=== PATIENT | female | born 1985 | race Caucasian/White ===

== ENCOUNTER 2019-04-14 15:44 | Emergency (ER) | payer OTHER, SELFPAY ==
[2019-04-14 15:45] VITALS: BP 143/86; PULSE 67; RESP 15; TEMP 36.3; O2SAT 97; BMI 25.8
--- NOTE | 2019-04-14 16:02 | DI.US.S_ITS ---
PROCEDURE: US ABDOMEN LIMITED INDICATIONS: RIGHT UPPER QUANDRANT PAIN TECHNIQUE: Real-time focused scanning was performed of the abdomen, with image documentation. COMPARISON: None. FINDINGS: No gallstones. No gallbladder wall thickening, pericholecystic fluid or sonographic Kearney's sign. The liver is normal in size and echotexture. Common bile duct is normal in caliber measuring 3.8 mm. Visualized pancreas is normal. IMPRESSION: Normal limited abdominal ultrasound exam. A cause for right upper quadrant pain is not identified. Dictated by: Juan Haile M.D. on 04/14/2019 at 16:00 Approved by: Juan Haile M.D. on 04/14/2019 at 16:01
--- NOTE | 2019-04-14 16:07 | ED_ITS ---
HPI - Abdominal Pain <KATERIN Orosco - Last Filed: 04/14/19 20:23> General Chief Complaint: Abdominal Pain Stated Complaint: states galbladder attack Time Seen by Provider: 04/14/19 15:53 Source: patient Mode of arrival: ambulatory Limitations: no limitations History of Present Illness HPI narrative: Healthy 33-year-old female with a history of asthma, presents emergency department today complaining of a right upper quadrant pain. She states the pain came on suddenly and awoke her up from the the middle the night. She described as a severe 8/10 colicky pain that has slightly decreased in severity over the past few hours occasionally radiates to her right shoulder and epigastric area. She reports associated nausea, decreased appetite, and occasional chills and sweats. Patient denies any vomiting or diarrhea, she states she has had a only a small amount of food to eat today and that has not aggravated her pain. Patient also reports she has just finished azithromycin f or an ear infection this past week and has some residual chest tightness due to asthma which she takes her albuterol for. She denies any vision changes, headaches, chest pain, shortness of breath, diarrhea, fevers, leg swelling, dizziness, or syncope. Related Data Previous Rx's Medication Instructions Recorded ketorolac 10 mg PO QID PRN #20 tab 04/14/19 ondansetron 8 mg PO Q8H PRN #20 tab 04/14/19 Allergies Allergy/AdvReac Type Severity Reaction Status Date / Time No Known Drug Allergies Allergy Verified 04/14/19 15:49 Review of Systems <KATERIN Orosco - Last Filed: 04/14/19 20:23> Review of Systems Narrative: REVIEW OF SYSTEMS: GENERAL: Denies fever, chills, malaise, or wt. loss. HENT: No head trauma, sore throat, or dysphagia. EYES: No loss of vision, double vision, eye pain, or irritation. CARDIOVASCULAR: No chest pain, palpitations, or orthopnea. RESPIRATORY: Patient reports just getting over a cold, see HPI. GASTROINTESTINAL: Complains of right upper quadrant abdominal pain, see HPI GENITOURINARY: No flank pain, urinary incontinence, hesitancy, frequency, or dysuria. No vaginal discharge or dyspareunia. MUSCULOSKELETAL: No pain, weakness, or trauma. INTEGUMENTARY: No rash, lesions, or pruritus. NEURO: No numbness, tingling, memory loss, confusion, or headaches. PSYCH: No behavior or mood changes. PFSH <KATERIN Orosco - Last Filed: 04/14/19 20:23> Medical History Asthma (Acute) Social History (Updated 04/14/19 @ 20:20 by KATERIN Orosco) Smoking Status: Unknown if ever smoked second hand exposure: No Social History Smoking Status: Unknown if ever smoked second hand exposure: No Exam <KATERIN Orosco - Last Filed: 04/14/19 20:23> Initial Vital Signs Initial Vital Signs: Vital Signs Temperature 97.4 F L 04/14/19 15:45 Pulse Rate 67 04/14/19 15:45 Respiratory Rate 15 04/14/19 15:45 Blood Pressure 143/86 H 04/14/19 15:45 Pulse Oximetry 97 04/14/19 15:45 PHYSICAL EXAMINATION: GENERAL: Well groomed, alert, and cooperative. Answers questions promptly and appropriately. Vital signs noted. HENT: Normocephalic, atraumatic. Hearing intact. Oral mucosa is pink and moist. EYES: Conjunctiva pink, sclera white, no periorbital swelling. CARDIOVASCULAR: S1 and S2 sounds normal. Regular rate and rhythm, no murmurs, clicks, or bruits. No pedal edema. RESPIRATORY: Normal respiratory rate, trachea midline, airway patent. No stridor, nasal flaring or accessory muscle use. Diffuse wheezes lung thorne this resolved after administration a duoneb. GASTROINTESTINAL: Bowel sounds normoactive. Abdomen is soft, right upper quadrant tenderness present. Positive Kearney sign. No organomegaly, no palpable masses. No rebound tenderness. GENITALURINARY: No flank tenderness. MUSCULOSKELETAL: Normal gait and coordination. Equal tone and mass bilaterally. EXTREMITIES: CMS intact, no pedal edema. SKIN: Warm, dry, soft, appropriate color for ethnicity. No lesions, rashes, or wounds. NEURO: Alert and Oriented X 3. Good coordination. No ataxia, or sensory deficits, or cognitive issues. PSYCH: Appropriate affect and mood. <Audrey Jerry MD - Last Filed: 04/15/19 07:12> Initial Vital Signs Initial Vital Signs: Vital Signs Temperature 97.4 F L 04/14/19 15:45 Pulse Rate 67 04/14/19 15:45 Respiratory Rate 15 04/14/19 15:45 Blood Pressure 143/86 H 04/14/19 15:45 Pulse Oximetry 97 04/14/19 15:45 Course <Ines KATERIN Ortiz - Last Filed: 04/14/19 20:23> Course Course Narrative: I had an extensive conversation with the patient and her mother about her test results. We discussed that further testing was needed to rule out other gallbladder etiologies (such as sphincter of Oddi dysfunction) and also discussed how these tests are not ordered through the emergency department. A CT scan was offered. We discussed how the patient does not meet admission criteria or criteria for surgical consult. I offered her pain and na usea medication and strongly encouraged her to follow up with her primary care provider. The patient was worried as she lives on [place], other options such as sitting in [place] were explored the conversation. Toradol was given before patient was discharged, she was given prescription for Toradol and ondansertron to take home with her. Orders Ordered: Discontinued Medications Albuterol/Ipratropium (Duoneb) 3 ml INH NOW ONE Stop: 04/14/19 16:08 Last Admin: 04/14/19 16:13 Dose: 3 ml Documented by: DANIELLE Ketorolac Tromethamine (Toradol) 30 mg IV NOW ONE Stop: 04/14/19 17:28 Last Admin: 04/14/19 17:33 Dose: 30 mg Documented by: DAYDAY Consultations Consultation #1: Patient staffed with Dr. Jerry. Vital Signs Vital signs: Vital Signs - 8 hr 04/14/19 15:45 04/14/19 16:13 04/14/19 17:58 Temperature 97.4 F L Pulse Rate 67 64 67 Respiratory Rate 15 14 19 Blood Pressure 143/86 H 118/77 Pulse Oximetry 97 100 100 <Audrey Jerry MD - Last Filed: 04/15/19 07:12> Orders Ordered: Discontinued Medications Albuterol/Ipratropium (Duoneb) 3 ml INH NOW ONE Stop: 04/14/19 16:08 Last Admin: 04/14/19 16:13 Dose: 3 ml Documented by: DANIELLE Ketorolac Tromethamine (Toradol) 30 mg IV NOW ONE Stop: 04/14/19 17:28 Last Admin: 04/14/19 17:33 Dose: 30 mg Documented by: DAYDAY Vital Signs Vital signs: Vital Signs - 8 hr 04/14/19 15:45 04/14/19 16:13 04/14/19 17:58 Temperature 97.4 F L Pulse Rate 67 64 67 Respiratory Rate 15 14 19 Blood Pressure 143/86 H 118/77 Pulse Oximetry 97 100 100 MDM - Abdominal Pain <KATERIN Orosco - Last Filed: 04/14/19 20:23> Medical Records Attestation: I reviewed the patient's medical records. Lab Data Attestation: I reviewed the patient's lab results. Result diagrams: 04/14/19 15:55 04/14/19 15:55 Labs: Lab Results 04/14/19 04/14/19 04/14/19 Range/Units 15:55 15:55 15:55 WBC 10.6 (4.5-11.0) X10^3/uL RBC 4.24 (4.0-5.2) X10^6/uL Hgb 14.0 (12.0-16.0) g/dL Hct 41.2 (36-46) % MCV 97.0 (80-100) fL MCH 33.0 (26-34) PG MCHC 34.0 (30-36) % RDW 12.8 (11.6-14.8) % Plt Count 274 (150-400) X10^3/uL Neut % (Auto) 56.6 (50-75) % Lymph % (Auto) 33.0 (25-40) % [place] % (Auto) 6.5 (3-14) % Eos % (Auto) 3.2 (2-4) % Baso % (Auto) 0.7 (0-2) % Neut # (Auto) 6000 (0281-1714) /uL Lymph # (Auto) 3500 (4521-1751) /uL [place] # (Auto) 700 (0-900) /uL Eos # (Auto) 300 (0-450) /uL Baso # (Auto) 100 (0-100) /uL PT 11.7 (10.1-12.7) SECONDS INR 1.0 (0.9-1.3) APTT 39 H (26.4-36.2) SECONDS Sodium 141 (137-145) mmol/L Potassium 3.7 (3.4-5.1) mmol/L Chloride 103 (98-107) mmol/L Carbon Dioxide 26 (22-32) mmol/L BUN 13 (7-17) mg/dL Creatinine 0.60 (0.52-1.04) mg/dL Estimated GFR > 60.0 (>60) mL/min BUN/Creatinine Ratio 21.7 (6-22) Glucose 93 (70-100) mg/dL Calcium 9.7 (8.4-10.2) mg/dL Total Bilirubin 0.8 (0.2-1.3) mg/dL AST 25 (14-36) IU/L ALT 22 (9-52) IU/L Alkaline Phosphatase 61 (38-126) U/L Total Protein 7.6 (6.3-8.2) g/dL Albumin 4.7 (3.5-5.0) g/dL Globulin 2.9 (1.7-4.1) g/dL Albumin/Globulin Ratio 1.6 (1.0-2.8) Lipase 98 (23-300) U/L Imaging Data US - abdomen: Radiologist's impression: [place] [id number] Ultrasound Report Signed Patient: Brenda Doshi [facility]#: [id number] : 1985Acct:[id number] Age/Sex: 33 / FDate of Service: 04/14/19 Loc: ED Accession Number: [id number] Procedure: US abdomen limited Ordering Provider: Ines Ortiz PROCEDURE: US ABDOMEN LIMITED INDICATIONS: RIGHT UPPER QUANDRANT PAIN TECHNIQUE: Real-time focused scanning was performed of the abdomen, with image documentation. COMPARISON: None. FINDINGS: No gallstones. No gallbladder wall thickening, pericholecystic fluid or sonographic Kearney's sign. The liver is normal in size and echotexture. Common bile duct is normal in caliber measuring 3.8 mm. Visualized pancreas is normal. IMPRESSION: Normal limited abdominal ultrasound exam. A cause for right upper quadrant pain is not identified. Dictated by: Juan Haile M.D. on 04/14/2019 at 16:00 Approved by: Juan Haile M.D. on 04/14/2019 at 16:01 ECG Data Attestation: I personally reviewed and interpreted this ECG as follows: Interpretation: Sinus bradycardia, rate 56, P are 128, QTC 431. No ectopy noted. No ST elevation or ST depression, no T-wave abnormal T. EKG was also viewed by Dr. Jerry. MDM Narrative Medical decision making narrative: Despite negative workup differential includes gallbladder etiology such as sphincter of Oddi dysfunction and un-visualized gallstones. Less suspicion for cholecystitis, cholelithiasis, hepatitis, pancreatitis, renal calculi, or infection due to unremarkable labs and negative ultrasound. Further follow-up is needed to determine etiology of symptoms as patient continues to complain of pain. Strict return precautions given and follow-up instructions discussed. <Audrey Jerry MD - Last Filed: 04/15/19 07:12> Lab Data Labs: Lab Results 04/14/19 04/14/19 04/14/19 Range/Units 15:55 15:55 15:55 WBC 10.6 (4.5-11.0) X10^3/uL RBC 4.24 (4.0-5.2) X10^6/uL Hgb 14.0 (12.0-16.0) g/dL Hct 41.2 (36-46) % MCV 97.0 (80-100) fL MCH 33.0 (26-34) PG MCHC 34.0 (30-36) % RDW 12.8 (11.6-14.8) % Plt Count 274 (150-400) X10^3/uL Neut % (Auto) 56.6 (50-75) % Lymph % (Auto) 33.0 (25-40) % [place] % (Auto) 6.5 (3-14) % Eos % (Auto) 3.2 (2-4) % Baso % (Auto) 0.7 (0-2) % Neut # (Auto) 6000 (9009-8612) /uL Lymph # (Auto) 3500 (9878-2654) /uL [place] # (Auto) 700 (0-900) /uL Eos # (Auto) 300 (0-450) /uL Baso # (Auto) 100 (0-100) /uL PT 11.7 (10.1-12.7) SECONDS INR 1.0 (0.9-1.3) APTT 39 H (26.4-36.2) SECONDS Sodium 141 (137-145) mmol/L Potassium 3.7 (3.4-5.1) mmol/L Chloride 103 (98-107) mmol/L Carbon Dioxide 26 (22-32) mmol/L BUN 13 (7-17) mg/dL Creatinine 0.60 (0.52-1.04) mg/dL Estimated GFR > 60.0 (>60) mL/min BUN/Creatinine Ratio 21.7 (6-22) Glucose 93 (70-100) mg/dL Calcium 9.7 (8.4-10.2) mg/dL Total Bilirubin 0.8 (0.2-1.3) mg/dL AST 25 (14-36) IU/L ALT 22 (9-52) IU/L Alkaline Phosphatase 61 (38-126) U/L Total Protein 7.6 (6.3-8.2) g/dL Albumin 4.7 (3.5-5.0) g/dL Globulin 2.9 (1.7-4.1) g/dL Albumin/Globulin Ratio 1.6 (1.0-2.8) Lipase 98 (23-300) U/L Discharge Plan Departure Patient Disposition: Home Clinical Impression: Abdominal pain Qualifiers: Abdominal location: left upper quadrant Qualified Code(s): R10.12 - Left upper quadrant pain Discharge Date/Time: 04/14/19 17:59 Instructions: DI for Abdominal Pain-Adult Activity Restrictions/Additional Instructions: Thank you for entrusting me with your care today. As discussed, your ultrasound and labs were negative for any concerning findings. However, I suggest he follow up with your primary care provider for further testing if your symptoms continue. Please return to the emergency department for chest pain, shortness of breath, uncontrollable vomiting, blood in your stool, dizziness, syncope, seizures, or any other concerning symptom. Prescriptions: New ketorolac 10 mg tablet 10 mg PO QID PRN (Reason: pain) Qty: 20 RF: 0 ondansetron 8 mg tablet,disintegrating 8 mg PO Q8H PRN (Reason: Nausea) Qty: 20 RF: 0 Referrals: Nahum Kathleen MD [Primary Care Provider] -
[2019-04-14 16:11] LABS: Add Manual Diff / Slide Review NO; Basophils Absolute Auto 100 /uL (0-100); Basophils Percent Auto 0.7 % (0-2); Eosinophils Absolute Auto 300 /uL (0-450); Eosinophils Percent Auto 3.2 % (2-4); Hematocrit 41.2 % (36-46); Lymphocytes Absolute Auto 3500 /uL (1100-4500); Monocytes Absolute Auto 700 /uL (0-900); Monocytes Percent Auto 6.5 % (3-14); Neutrophils Absolute Auto 6000 /uL (1500-7000); Neutrophils Percent Auto 56.6 % (50-75); Platelet Count 274 X10^3/uL (150-400); Red Blood Cell Count 4.24 X10^6/uL (4.0-5.2); Red Cell Distribution Width 12.8 % (11.6-14.8); White Blood Cell Count 10.6 X10^3/uL (4.5-11.0)
[2019-04-14 16:13] VITALS: PULSE 64; RESP 14; O2SAT 100
[2019-04-14 16:13] LABS: Prothrombin Time 11.7 SECONDS (10.1-12.7)
[2019-04-14] MEDS: ALBUTEROL/IPRATROPIUM 3 ML AMPUL INH (16:13)
[2019-04-14 16:16] LABS: PTT Partial Thromboplastin Tim 39 SECONDS (26.4-36.2)
[2019-04-14 16:19] LABS: Alanine Aminotransferase 22 IU/L (9-52); Albumin 4.7 g/dL (3.5-5.0); Albumin Globulin Ratio 1.6 (1.0-2.8); Alkaline Phosphatase 61 U/L (38-126); Aspartate Aminotransferase 25 IU/L (14-36); BUN Creatinine Ratio 21.7 (6-22); Bilirubin Total 0.8 mg/dL (0.2-1.3); Blood Urea Nitrogen 13 mg/dL (7-17); Calcium 9.7 mg/dL (8.4-10.2); Carbon Dioxide 26 mmol/L (22-32); Chloride 103 mmol/L (98-107); Estimated Glomerular Filt Rate > 60.0 mL/min (>60); Globulin 2.9 g/dL (1.7-4.1); Glucose 93 mg/dL (70-100); HEMOLYSIS 18 (0-50); Lipase 98 U/L (23-300); Potassium 3.7 mmol/L (3.4-5.1); Sodium 141 mmol/L (137-145); Total Protein 7.6 g/dL (6.3-8.2)
[2019-04-14] MEDS: KETOROLAC 60 MG/2 ML VIAL 30 MG IV (17:33)
[2019-04-14 17:58] VITALS: BP 118/77; PULSE 67; RESP 19; O2SAT 100
== END 2019-04-14 17:59 | disposition home or self-care (01) ==
PROVIDERS: Emergency Provider Nurse Practitioner; Family Provider Family Medicine; PCP Family Medicine
DX: R10.12 Left upper quadrant pain (principal)
CPT/HCPCS: 36591; 76705; 80053; 83690; 85025; 85610; 85730; 93005; 93010; 94150; 94640; 96374; 99282; 99285; J1885

== ENCOUNTER 2019-04-16 12:54 | Emergency (ER) | payer OTHER, SELFPAY ==
[2019-04-16 13:01] VITALS: BP 129/84; PULSE 68; RESP 18; TEMP 36.2; O2SAT 98; BMI 26.6
--- NOTE | 2019-04-16 17:54 | ED.ABDPAIN ---
HPI - Abdominal Pain General Chief Complaint: Abdominal Pain Stated Complaint: Abdominal Pain Time Seen by Provider: 04/16/19 17:52 Source: patient Mode of arrival: ambulatory Limitations: no limitations History of Present Illness HPI narrative: Patient is a 33-year-old female who presents with right upper quadrant pain. This has continued for last 3 days. She was actually seen evaluated here on 04/14/2019 where she had blood work and ultrasound. She was given Zofran to go home with. She actually just took Zofran at 5:30 a.m.. She continued to feel nauseous no vomiting. She has intermittent right upper quadrant pain radiates up into her shoulder. No fever. She has not actually vomited. No right lower abdominal pain. she denies any painful or frequent urination no hematuria. No flank pain. MD complaint: abdominal pain Onset (ago): day(s) (3) Location: RUQ Quality: cramping Relieving factors: nothing Exacerbating factors: nothing Related Data Home Medications Medication Instructions Recorded Confirmed albuterol sulfate 90 mcg/actuation 1 puff INHALATION Q4-6H PRN 04/16/19 04/16/19 aerosol inhaler Previous Rx's Medication Instructions Recorded ketorolac 10 mg PO QID PRN #20 tab 04/14/19 ondansetron 8 mg PO Q8H PRN #20 tab 04/14/19 Allergies Allergy/AdvReac Type Severity Reaction Status Date / Time No Known Drug Allergies Allergy Verified 04/16/19 12:08 Review of Systems Review of Systems Narrative: GENERAL: Denies chills, fatigue, malaise, fever, sweats, travel HEENT: Denies sinus pain, ear pain, sore throat, difficulty swallowing, neck pain RESPIRATORY: Denies dyspnea, cough, wheezing, hemoptysis, sputum. CARDIOVASCULAR: Denies chest pain, palpitations, orthopnea, edema GASTROINTESTINAL: See HPI : Denies dysuria, frequency, incontinence, hematuria, urinary retention, flank pain. MUSCULOSKELETAL: Denies weakness, joint pain, or bony pain SKIN: No rash, no erythema, no pruritus NEUROLOGIC: Denies weakness, dizziness, headache, numbness, change in speech, confusion PSYCHIATRIC: No concerning psychosocial issues. 12 point review of systems is negative except for those stated above and HPI PFSH Social History (Reviewed 04/14/19 @ 20:20 by RAINA Orosco Smoking Status: Unknown if ever smoked second hand exposure: No Exam Initial Vital Signs Initial Vital Signs: Vital Signs Temperature 97.1 F L 04/16/19 13:01 Pulse Rate 68 04/16/19 13:01 Respiratory Rate 18 04/16/19 13:01 Blood Pressure 129/84 04/16/19 13:01 Pulse Oximetry 98 04/16/19 13:01 GENERAL: Well-appearing, well-nourished and in no acute distress. HEENT: Head atraumatic,EOMI, pupils reactive CARDIOVASCULAR: Regular rate and rhythm without murmurs, rubs or gallops. RESPIRATORY: Breath sounds equal bilaterally, no wheezes rales or rhonchi. ABDOMEN: Soft, mild right upper quadrant pain negative Kearney's sign no guarding no rebound : Minimal flank EXTREMITIES: Normal range of motion, no clubbing or edema. Neurovascularly intact NEUROLOGICAL: Alert and oriented x4.Normal gait and speech. Cranial nerves II through XII grossly intact. SKIN: Warm, dry, no laceration, no petechiae, no rashes or lesions. Course Orders Ordered: ED Orders 04/16/19 18:17 CT kidney ureter bladder (KUB) Stat 04/16/19 18:27 Complete Blood Count AUTO DIFF Stat Comprehensive Metabolic Panel Stat Lipase Stat Discontinued Medications Sodium Chloride (Normal Saline 0.9%) 1,000 mls @ 1,000 mls/hr IV CONT MAYTE Last Infusion: 04/16/19 19:48 Dose: 1,000 mls/hr Documented by: Admin: 04/16/19 18:59 Dose: 1,000 mls/hr Documented by: STONE Ketorolac Tromethamine (Toradol) 30 mg IV NOW ONE Stop: 04/16/19 18:04 Last Admin: 04/16/19 18:57 Dose: 30 mg Documented by: STONE Pantoprazole Sodium (Protonix) 40 mg IV NOW ONE Stop: 04/16/19 18:04 Last Admin: 04/16/19 18:59 Dose: 40 mg Documented by: STONE Vital Signs Vital signs: Vital Signs - 8 hr 04/16/19 13:01 04/16/19 19:40 Temperature 97.1 F L Pulse Rate 68 63 Respiratory Rate 18 14 Blood Pressure 129/84 121/80 Pulse Oximetry 98 100 MDM - Abdominal Pain Lab Data Attestation: I reviewed the patient's lab results. Result diagrams: 04/16/19 18:27 04/16/19 18:27 Labs: Lab Results 04/16/19 04/16/19 Range/Units 18:27 18:27 WBC 8.0 (4.5-11.0) X10^3/uL RBC 4.02 (4.0-5.2) X10^6/uL Hgb 13.1 (12.0-16.0) g/dL Hct 38.9 (36-46) % MCV 96.7 (80-100) fL MCH 32.5 (26-34) PG MCHC 33.6 (30-36) % RDW 12.8 (11.6-14.8) % Plt Count 258 (150-400) X10^3/uL Neut % (Auto) 59.0 (50-75) % Lymph % (Auto) 32.2 (25-40) % [place] % (Auto) 5.4 (3-14) % Eos % (Auto) 2.9 (2-4) % Baso % (Auto) 0.5 (0-2) % Neut # (Auto) 4700 (6303-2715) /uL Lymph # (Auto) 2600 (8167-8171) /uL [place] # (Auto) 400 (0-900) /uL Eos # (Auto) 200 (0-450) /uL Baso # (Auto) 0 (0-100) /uL Sodium 139 (137-145) mmol/L Potassium 3.5 (3.4-5.1) mmol/L Chloride 105 (98-107) mmol/L Carbon Dioxide 28 (22-32) mmol/L BUN 10 (7-17) mg/dL Creatinine 0.60 (0.52-1.04) mg/dL Estimated GFR > 60.0 (>60) mL/min BUN/Creatinine Ratio 16.7 (6-22) Glucose 122 H (70-100) mg/dL Calcium 9.2 (8.4-10.2) mg/dL Total Bilirubin 0.6 (0.2-1.3) mg/dL AST 22 (14-36) IU/L ALT 12 (9-52) IU/L Alkaline Phosphatase 49 (38-126) U/L Total Protein 7.0 (6.3-8.2) g/dL Albumin 4.3 (3.5-5.0) g/dL Globulin 2.7 (1.7-4.1) g/dL Albumin/Globulin Ratio 1.6 (1.0-2.8) Lipase 95 (23-300) U/L Point of care testing: Point of Care Testing Test Results Negative Imaging Data CT scan - abdomen: Radiologist's impression: PROCEDURE: CT KIDNEY URETER BLADDER (KUB) INDICATIONS: right flank pain TECHNIQUE: Noncontrast 5 mm thick sections acquired from the diaphragms to the symphysis. 5 mm thick coronal and sagittal reformats were then performed. For radiation dose reduction, the following was used: automated exposure control, adjustment of mA and/or kV according to patient size. COMPARISON: None. FINDINGS: Image quality: Excellent. Lung bases: Lung bases are clear. Heart size is normal. Urinary system: Both kidneys are normal in size. No kidney stones. No hydronephrosis or perinephric fat stranding. Both ureters appear non-dilated throughout their expected courses. Bladder wall thickness is normal; no calcified bladder stones. Other solid organs: Liver is normal in size. Gallbladder is within normal limits. Pancreas is normal in contours. Spleen is normal in size. No adrenal nodules. Peritoneum and bowel: Unenhanced bowel loops demonstrate normal wall thickness and caliber. No free fluid or air. Appendix is visualized in right lower quadrant and is within normal limits. Mild fecal stasis in the colon is seen. Nodes and vessels: No retroperitoneal or mesenteric adenopathy by size criteria. Aorta and inferior vena cava are normal in caliber. Abdominal wall: No ventral hernias. Pelvis: No free pelvic fluid. No inguinal hernias or adenopathy. Intrauterine device is noted. Bones: No suspicious bony lesions. No vertebral body compression fractures. IMPRESSION: 1. No renal stone or hydronephrosis. 2. Normal appendix. No bowel obstruction. Mild constipation. No free fluid or free air. Dictated by: Jorgito Hernandez M.D. on 04/16/2019 at 19:12 ECG Data Interpretation: Patient blood work and CT overall reassuring. Ultrasound from a few days ago did not show any significant sludge or gallbladder stones. Overall I recommend that she have surgery referral and evaluation however at this time not emergency. Discharge Plan Departure Patient Disposition: Home Clinical Impression: Abdominal pain Qualifiers: Abdominal location: generalized Qualified Code(s): R10.84 - Generalized abdominal pain Discharge Date/Time: 04/16/19 19:40 Instructions: DI for Abdominal Pain-Adult Activity Restrictions/Additional Instructions: *You have been diagnosed with abdominal pain *What to do: Increased fluid as tolerated. CT scan and blood work today are again are reassuring. It does sound as though your having gallbladder problems. You may require a surgical referral. However today no need for emergent surgery *Continue to take medications as directed *Follow up with your primary care provider in 2-3 days *Return to ER if you should have persistent vomiting increasing pain [or] any new, worsening or concerning symptoms Prescriptions: No Action albuterol sulfate 90 mcg/actuation HFA aerosol inhaler 1 puff INHALATION Q4-6H PRNRF: 0 ketorolac 10 mg tablet 10 mg PO QID PRN (Reason: pain) Qty: 20 RF: 0 ondansetron 8 mg tablet,disintegrating 8 mg PO Q8H PRN (Reason: Nausea) Qty: 20 RF: 0 Referrals: [facility] [Provider Group] [facility] [Outside] Nahum Kathleen MD [Primary Care Provider] -
--- NOTE | 2019-04-16 18:17 | DI.CT.S_ITS ---
PROCEDURE: CT KIDNEY URETER BLADDER (KUB) INDICATIONS: right flank pain TECHNIQUE: Noncontrast 5 mm thick sections acquired from the diaphragms to the symphysis. 5 mm thick coronal and sagittal reformats were then performed. For radiation dose reduction, the following was used: automated exposure control, adjustment of mA and/or kV according to patient size. COMPARISON: None. FINDINGS: Image quality: Excellent. Lung bases: Lung bases are clear. Heart size is normal. Urinary system: Both kidneys are normal in size. No kidney stones. No hydronephrosis or perinephric fat stranding. Both ureters appear non-dilated throughout their expected courses. Bladder wall thickness is normal; no calcified bladder stones. Other solid organs: Liver is normal in size. Gallbladder is within normal limits. Pancreas is normal in contours. Spleen is normal in size. No adrenal nodules. Peritoneum and bowel: Unenhanced bowel loops demonstrate normal wall thickness and caliber. No free fluid or air. Appendix is visualized in right lower quadrant and is within normal limits. Mild fecal stasis in the colon is seen. Nodes and vessels: No retroperitoneal or mesenteric adenopathy by size criteria. Aorta and inferior vena cava are normal in caliber. Abdominal wall: No ventral hernias. Pelvis: No free pelvic fluid. No inguinal hernias or adenopathy. Intrauterine device is noted. Bones: No suspicious bony lesions. No vertebral body compression fractures. IMPRESSION: 1. No renal stone or hydronephrosis. 2. Normal appendix. No bowel obstruction. Mild constipation. No free fluid or free air. Dictated by: Jorgito Hernandez M.D. on 04/16/2019 at 19:12 Approved by: Jorgito Hernandez M.D. on 04/16/2019 at 19:14
[2019-04-16 18:35] LABS: Add Manual Diff / Slide Review NO; Basophils Absolute Auto 0 /uL (0-100); Basophils Percent Auto 0.5 % (0-2); Eosinophils Absolute Auto 200 /uL (0-450); Eosinophils Percent Auto 2.9 % (2-4); Hematocrit 38.9 % (36-46); Hemoglobin 13.1 g/dL (12.0-16.0); Lymphocytes Absolute Auto 2600 /uL (1100-4500); Lymphocytes Percent Auto 32.2 % (25-40); Mean Corpuscular HGB Conc 33.6 % (30-36); Mean Corpuscular Hemoglobin 32.5 PG (26-34); Mean Corpuscular Volume 96.7 fL (80-100); Monocytes Absolute Auto 400 /uL (0-900); Monocytes Percent Auto 5.4 % (3-14); Neutrophils Absolute Auto 4700 /uL (1500-7000); Platelet Count 258 X10^3/uL (150-400); Red Blood Cell Count 4.02 X10^6/uL (4.0-5.2); Red Cell Distribution Width 12.8 % (11.6-14.8)
[2019-04-16 18:46] LABS: Alanine Aminotransferase 12 IU/L (9-52); Albumin 4.3 g/dL (3.5-5.0); Albumin Globulin Ratio 1.6 (1.0-2.8); Alkaline Phosphatase 49 U/L (38-126); Aspartate Aminotransferase 22 IU/L (14-36); BUN Creatinine Ratio 16.7 (6-22); Bilirubin Total 0.6 mg/dL (0.2-1.3); Blood Urea Nitrogen 10 mg/dL (7-17); Calcium 9.2 mg/dL (8.4-10.2); Carbon Dioxide 28 mmol/L (22-32); Chloride 105 mmol/L (98-107); Estimated Glomerular Filt Rate > 60.0 mL/min (>60); Globulin 2.7 g/dL (1.7-4.1); Glucose 122 mg/dL (70-100); HEMOLYSIS < 15 (0-50); Lipase 95 U/L (23-300); Potassium 3.5 mmol/L (3.4-5.1); Sodium 139 mmol/L (137-145)
[2019-04-16] MEDS: KETOROLAC 60 MG/2 ML VIAL 30 MG IV (18:57)
[2019-04-16] MEDS: SODIUM CHLORIDE 0.9% 1,000 ML 1000 ML IV (18:59)
[2019-04-16] MEDS: PANTOPRAZOLE 40 MG VIAL IV (18:59)
[2019-04-16 19:40] VITALS: BP 121/80; PULSE 63; RESP 14; O2SAT 100
== END 2019-04-16 19:40 | disposition home or self-care (01) ==
PROVIDERS: Emergency Provider Emergency Medicine; Family Provider Family Medicine; PCP Family Medicine
DX: R10.84 Generalized abdominal pain (principal)
CPT/HCPCS: 36415; 74176; 80053; 81025; 83690; 85025; 96361; 96374; 96375; 99283; 99285; C9113; J1885